=== PATIENT | male | born 1960 | race Caucasian/White ===

== ENCOUNTER 2019-10-13 07:51 | Emergency (ER) | payer MEDICARE, MEDICAID ==
[~2019-10-13] VITALS: Ht 175.3 cm; Wt 64.1 kg
[2019-10-13 07:52] VITALS: BP 139/87
[2019-10-13] MEDS ORDERED: LAMO100T3 PO (08:03)
[2019-10-13] MEDS ORDERED: SERT-138 PO ×2 (08:03→09:11)
[2019-10-13] MEDS ORDERED: ROSU20TA5 PO (08:03)
[2019-10-13] MEDS ORDERED: DIVA500T94 PO (08:03)
[2019-10-13] MEDS ORDERED: POTA10TA17 PO (08:03)
[2019-10-13] MEDS ORDERED: METO1TAB7 PO (08:03)
[2019-10-13] MEDS ORDERED: PRAD150C6 PO (08:03)
[2019-10-13 08:36] LABS: BASO # 0.1 10^3/uL (0.0-0.2); BASO % 0.6 % (0.0-1.0); EOS # 0.1 10^3/uL (0.0-0.5); EOS % 1.2 % (0.0-3.0); HEMATOCRIT 44.1 % (42.0-52.0); HEMOGLOBIN 14.3 g/dl (13.5-17.5); LYMPH # 3.2 10^3/uL (1.5-5.0); LYMPH % 35.6 % (24.0-44.0); MEAN CORPUSCULAR HEMOGLOBIN 32.9 pg (27.0-33.0); MEAN CORPUSCULAR HGB CONC 32.4 g/dl (32.0-36.5); MEAN CORPUSCULAR VOLUME 101.4 fl (80.0-96.0); MONO # 1.3 10^3/uL (0.0-0.8); MONO % 13.9 % (0.0-5.0); NEUTROPHILS # 4.3 10^3/uL (1.5-8.5); NEUTROPHILS % 48.3 % (36.0-66.0); PLATELET COUNT, AUTOMATED 109 10^3/uL (150-450); RED BLOOD COUNT 4.35 10^6/uL (4.30-6.10)
--- NOTE | 2019-10-13 09:01 | REP ---
CT brain: 10/13/2019. Indication: Seizure. Comparison: 04/07/2007. Technique: Unenhanced axial CT images of the brain were obtained from skull base to vertex. Findings: There is no acute intracranial hemorrhage, acute cortical infarction, significant mass effect or hydrocephalous. Sunken partially demineralized bone flap on the right is present. Slight hyperattenuating tissue deep to the bone flap is present likely representing granulation tissue. There is no evidence of trephine syndrome. Areas of encephalomalacia and gliosis are present within the right cerebral hemisphere particularly the posterior right temporal lobe. Chronic-appearing left greater than right basal ganglia lacunar infarctions are present. Diffuse volume loss is noted. Impression: No acute intracranial process. Postoperative sequelae on the right with right cerebral hemisphere encephalomalacia and gliosis. Electronically Signed by Farrukh Doran DO 10/13/2019 08:52 A
[2019-10-13 09:03] LABS: BLOOD UREA NITROGEN 10 MG/DL (7-18); CALCIUM LEVEL 8.6 MG/DL (8.5-10.1); CARBON DIOXIDE LEVEL 28 MEQ/L (21-32); CHLORIDE LEVEL 107 MEQ/L (98-107); CK-MB VALUE MASS 1.4 NG/ML (<3.6); CPK CREATINE PHOSPHOKINASE 69 U/L (39-308); CREATININE FOR GFR 0.92 MG/DL (0.70-1.30); GLOMERULAR FILTRATION RATE > 60.0 (>56); GLUCOSE, FASTING 87 MG/DL (70-100); MB/CK RELATIVE INDEX 2.03 (< OR =4); POTASSIUM SERUM 4.6 MEQ/L (3.5-5.1); SODIUM LEVEL 140 MEQ/L (136-145); TROPONIN I < 0.02 NG/ML (< 0.10); VALPROIC ACID (DEPAKOTE) 51.9 UG/ML (50.0-100.0)
[2019-10-13] MEDS ORDERED: DEPA1TAB3 PO (09:11)
--- NOTE | 2019-10-13 16:50 | ECGEPIP ---
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
== END 2019-10-13 10:07 | disposition home or self-care (01) ==
LOC: EDBD 07:51 → M ED 07:51
DX: G40.909 Epilepsy, unspecified, not intractable, without status epilepticus (principal); F33.9 Major depressive disorder, recurrent, unspecified; I25.10 Atherosclerotic heart disease of native coronary artery without angina pectoris; Z95.5 Presence of coronary angioplasty implant and graft; Z79.899 Other long term (current) drug therapy; F17.210 Nicotine dependence, cigarettes, uncomplicated

== ENCOUNTER 2019-10-13 13:59 | Inpatient (IN) | payer MEDICARE, MEDICAID ==
[~2019-10-13] VITALS: Ht 172.7 cm; Wt 64.5 kg
[~2019-10-13 13:59] MED LIST: DEPA1TAB3 PO; DIVA500T94 PO; LAMO100T3 PO; METO1TAB7 PO; POTA10TA17 PO; PRAD150C6 PO; ROSU20TA5 PO; SERT-138 PO
[2019-10-13] MEDS ORDERED: VALPROATE SOD INJ 1,000 MG in D5W 50 ML IV ONE (16:00)
[2019-10-13] MEDS ORDERED: lamoTRIgine 25 MG TAB PO ONE (16:00)
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
[2019-10-13] MEDS ORDERED: LORazepam 2 MG TAB PO PRN (18:30)
[2019-10-13 19:32] LABS: HEMATOCRIT 37.7 % (42.0-52.0); HEMOGLOBIN 12.7 g/dl (13.5-17.5); MEAN CORPUSCULAR HEMOGLOBIN 32.5 pg (27.0-33.0); MEAN CORPUSCULAR HGB CONC 33.7 g/dl (32.0-36.5); MEAN CORPUSCULAR VOLUME 96.4 fl (80.0-96.0); RED BLOOD COUNT 3.91 10^6/uL (4.30-6.10); WHITE BLOOD COUNT 9.1 10^3/uL (4.0-10.0)
[2019-10-13 19:46] LABS: INR 1.26; PROTHROMBIN TIME 15.5 SECONDS (11.8-14.0)
[2019-10-13 19:54] LABS: ALBUMIN 3.3 GM/DL (3.2-5.2); ALT/SGPT 13 U/L (12-78); BILIRUBIN,TOTAL 0.5 MG/DL (0.2-1.0); BLOOD UREA NITROGEN 7 MG/DL (7-18); CALCIUM LEVEL 8.6 MG/DL (8.5-10.1); CARBON DIOXIDE LEVEL 25 MEQ/L (21-32); CHLORIDE LEVEL 103 MEQ/L (98-107); CREATININE FOR GFR 0.79 MG/DL (0.70-1.30); GLOMERULAR FILTRATION RATE > 60.0 (>56); GLUCOSE, FASTING 92 MG/DL (70-100); POTASSIUM SERUM 4.1 MEQ/L (3.5-5.1); SODIUM LEVEL 134 MEQ/L (136-145); TOTAL PROTEIN 6.7 GM/DL (6.4-8.2)
[2019-10-13 19:58] LABS: PLATELET COUNT, AUTOMATED 96 10^3/uL (150-450)
[2019-10-13] MEDS ORDERED: HEPARIN SOD (PORCINE) 5000 UNITS/ML VIAL SC SCH (21:00)
[2019-10-13 22:00] VITALS: BP 128/78
[2019-10-13] MEDS ORDERED: IBUPROFEN 600 MG TAB PO PRN (22:00)
[2019-10-13] MEDS: THIAMINE 100 MG TAB PO SCH (22:23)
[2019-10-13] MEDS: ROSUVASTATIN 10 MG TAB (CRESTOR) PO SCH (22:23)
[2019-10-13] MEDS: DIVALPROEX 500 MG TAB PO SCH (22:24)
[2019-10-13] MEDS: lamoTRIgine 100MG TAB PO SCH (22:24)
[2019-10-13] MEDS: DABIGATRAN ETEXILATE 75 MG CAP (PRADAXA) PO SCH (22:53)
[2019-10-14 06:00] VITALS: BP 145/81
[2019-10-14] MEDS: DABIGATRAN ETEXILATE 75 MG CAP (PRADAXA) PO SCH ×2 (08:46→21:29)
[2019-10-14] MEDS: MULTIVITAMINS/MINERALS THERAP 1 TAB PO SCH (08:48)
[2019-10-14] MEDS: SERTRALINE 100 MG TAB PO SCH (08:48)
[2019-10-14 08:49] VITALS: BP 145/81
[2019-10-14] MEDS: METOPROLOL SUCC (TopROL XL) 50MG **XL** TAB PO SCH (08:49)
[2019-10-14] MEDS: lamoTRIgine 100MG TAB PO SCH ×2 (08:50→21:28)
[2019-10-14] MEDS: POTASSIUM CHLORIDE 10 MEQ SR TABLET PO SCH (08:50)
[2019-10-14] MEDS: THIAMINE 100 MG TAB PO SCH ×2 (08:51→21:28)
[2019-10-14] MEDS: FOLIC ACID 1 MG TAB PO SCH (08:51)
[2019-10-14] MEDS: DIVALPROEX 500 MG TAB PO SCH ×2 (08:52→21:30)
[2019-10-14 14:00] VITALS: BP 145/81
--- NOTE | 2019-10-14 18:45 | IPNPDOC ---
Text Note Date of Service The patient was seen on 10/14/19. NOTE Subjective: -Feels much better this morning -Reports having recently driven from [facility] with poor sleep in the last few days, but reports full compliance with meds though this is disputed per collateral history per nursing. -No seizures overnight, no fever, chills, dyspnea, AMS, dysuria Objective: Vitals: Hemodynamically stable and afebrile General: Was sleep on entry, then awake and alert on voice, breathing comfortably on room air HEENT: NCAT, PERRLA, EOMI, MMM Neck: supple, no JVD Pulm: CTAB Cardiac: RRR, no mrg Abd: Normoactive bowel sounds, soft, NTND Ext: No LE edema, WWP Neuro: AOx3, no droops, no dysarthria, moving all extremities spontaneously, no tremors noted Labs: Reviewed WBC 9.1 hgb 12.7 hct 37.7 platelets 96 na 134 K 4.1 Cr 0.79 Assessment: 59 years old mna with a history of stroke, CABG, traumatic brain injury in 2004, 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 Recurrent seizures Status: Acute Problem Text: Most likely provoked by multiple factors, including alcohol, noncompliance, sleep deprivation -[facility] protocol -Continue home seizure medications: depakote and lamictal -Appreciate neurology recommendation -Seizure precautions History of excessive alcohol? intake: -[facility] protocol -Thiamine, folate supplementation Hypertension: -continue home toprol XL History of thromboses? -continue dabigatran 150 BID Hyperlipidemia: -continue crestor Depression: -continue sertraline Diet: regular DVT ppx: on dabigatran VS,Fishbone, I+O VS, Fishbone, I+O Laboratory Tests 10/13/19 19:23 Vital Signs Date Time Temp Pulse Resp B/P (MAP) Pulse Ox O2 Delivery O2 Flow Rate FiO2 10/14/19 14:00 60 145/81 10/14/19 06:00 99.1 17 95 Room Air I&O- Last 24 Hours up to 6 AM 10/14/19 05:59 Intake Total 0 ml Output Total 100 ml Balance -100 ml ELISA ELIZABETH MD Oct 14, 2019 18:38
[2019-10-14 19:55] VITALS: BP 127/76
[2019-10-14 20:00] VITALS: BP 128/76
[2019-10-14] MEDS: ROSUVASTATIN 10 MG TAB (CRESTOR) PO SCH (21:29)
[2019-10-15 05:40] VITALS: BP 123/74
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
[2019-10-15 08:00] VITALS: BP 130/70
[2019-10-15] MEDS: FOLIC ACID 1 MG TAB PO SCH (09:00)
[2019-10-15] MEDS: DIVALPROEX 500 MG TAB PO SCH (09:00)
[2019-10-15] MEDS: METOPROLOL SUCC (TopROL XL) 50MG **XL** TAB PO SCH (09:00)
[2019-10-15] MEDS: THIAMINE 100 MG TAB PO SCH (09:01)
[2019-10-15] MEDS: SERTRALINE 100 MG TAB PO SCH (09:02)
[2019-10-15] MEDS: POTASSIUM CHLORIDE 10 MEQ SR TABLET PO SCH (09:02)
[2019-10-15] MEDS: lamoTRIgine 100MG TAB PO SCH (09:03)
[2019-10-15] MEDS: MULTIVITAMINS/MINERALS THERAP 1 TAB PO SCH (09:04)
[2019-10-15] MEDS: DABIGATRAN ETEXILATE 75 MG CAP (PRADAXA) PO SCH (09:04)
[2019-10-15 09:20] LABS: HEMATOCRIT 38.2 % (42.0-52.0); HEMOGLOBIN 13.1 g/dl (13.5-17.5); MEAN CORPUSCULAR HGB CONC 34.3 g/dl (32.0-36.5); MEAN CORPUSCULAR VOLUME 96.2 fl (80.0-96.0); PLATELET COUNT, AUTOMATED 131 10^3/uL (150-450); RED BLOOD COUNT 3.97 10^6/uL (4.30-6.10); WHITE BLOOD COUNT 8.4 10^3/uL (4.0-10.0)
[2019-10-15 09:37] VITALS: BP 130/75
[2019-10-15 10:07] LABS: BLOOD UREA NITROGEN 20 MG/DL (7-18); CALCIUM LEVEL 8.8 MG/DL (8.5-10.1); CARBON DIOXIDE LEVEL 25 MEQ/L (21-32); CHLORIDE LEVEL 110 MEQ/L (98-107); CREATININE FOR GFR 1.08 MG/DL (0.70-1.30); GLOMERULAR FILTRATION RATE > 60.0 (>56); GLUCOSE, FASTING 79 MG/DL (70-100); SODIUM LEVEL 140 MEQ/L (136-145)
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
[2019-10-15] MEDS ORDERED: LAMO100T3 PO (13:05)
[2019-10-15] MEDS ORDERED: DIVA500T94 PO (13:05)
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
== END 2019-10-15 14:50 | disposition home health service (06) | DRG 101 ==
LOC: EDBD 13:59 → M ED 13:59 → M ED INP 17:57 → M MS5PR 21:45
PROVIDERS: ADMIT Internal Medicine; ATTEND Internal Medicine
DX: G40.409 Other generalized epilepsy and epileptic syndromes, not intractable, without status epilepticus (principal); I10 Essential (primary) hypertension; Z87.820 Personal history of traumatic brain injury; I25.10 Atherosclerotic heart disease of native coronary artery without angina pectoris; Z95.1 Presence of aortocoronary bypass graft; Z79.01 Long term (current) use of anticoagulants; Z79.899 Other long term (current) drug therapy; F17.200 Nicotine dependence, unspecified, uncomplicated; Z86.73 Personal history of transient ischemic attack (TIA), and cerebral infarction without residual deficits; Z91.19 Patient's noncompliance with other medical treatment and regimen; Z72.820 Sleep deprivation; E78.5 Hyperlipidemia, unspecified; F32.9 Major depressive disorder, single episode, unspecified; F10.20 Alcohol dependence, uncomplicated; Z68.21 Body mass index [BMI] 21.0-21.9, adult